=== PATIENT | female | born 2000 | race Caucasian/White ===

== ENCOUNTER 2022-09-23 08:57 | Day surgery (SDC) | payer MEDICAID ==
[~2022-09-23] VITALS: Ht 152.4 cm; Wt 45.5 kg
[~2022-09-23 08:57] MED LIST: OMEP20CA12 PO; SODIUM CHLORIDE 0.9% 1,000 ML ONE
[2022-09-23] MEDS ORDERED: SODIUM CHLORIDE 0.9% 1,000 ML IV ONE (09:00)
[2022-09-23 09:19] LABS: COVID AG,FIA SOURCE NASAL SWAB
[2022-09-23] MEDS ORDERED: PROPOFOL 1% 20 ML VIAL IVP ONE (12:00)
[2022-09-23] MEDS ORDERED: LIDOCAINE/PF 2% 5 ML SYRINGE IVP ONE (12:00)
[2022-09-24 06:06] LABS: HEPATITIS C AB (EIA) <0.1 s/co ratio (0.0-0.9)
[2022-09-24 08:06] LABS: HIV 1-2 SCREEN 4TH GEN W/RFLX Non Reactive (Non Reactive)
== END 2022-09-23 11:35 | disposition home or self-care (01) ==
LOC: SURGERY 08:57
PROVIDERS: ATTEND Internal Medicine Gastroenterology
DX: K29.70 Gastritis, unspecified, without bleeding (principal); K44.9 Diaphragmatic hernia without obstruction or gangrene; Z79.899 Other long term (current) drug therapy; Z83.79 Family history of other diseases of the digestive system; Z98.890 Other specified postprocedural states; Z20.822 Contact with and (suspected) exposure to COVID-19
CPT/HCPCS: 43248; 43239; 87426; 88305; 84703; 36415; 86709; 86803; 87389; C1769; J2704; J3490; J7030; C9803